=== PATIENT | female | born 1985 | race African-American/Black ===

== ENCOUNTER 2017-09-02 12:28 | Emergency (ER) | payer SELFPAY ==
--- NOTE | 2017-09-02 12:39 | PHYS DOC ---
Adult General Chief Complaint Chief Complaint: CHEST PAIN HPI HPI Patient is a 32 year old -Macanese Mac[place] female who presents with chest pain that is in her right upper quadrant around to her back and into her anterior chest. She states it's there constantly sometimes is made worse when she lays down. She denies any vomiting but states she's felt nauseated. She states she feels short of breath and has no energy at all the symptoms been going on for about the last 3 days. She denies any history of smoking or tobacco use. She denies a family history of heart disease. Review of Systems Review of Systems Constitutional: Denies fever or chills [] Eyes: Denies change in visual acuity, redness, or eye pain [] HENT: Denies nasal congestion or sore throat [] Respiratory: Denies cough or shortness of breath [] Cardiovascular: No additional information not addressed in HPI [] GI: Denies abdominal pain, nausea, vomiting, bloody stools or diarrhea [] : Denies dysuria or hematuria [] Musculoskeletal: Denies back pain or joint pain [] Integument: Denies rash or skin lesions [] Neurologic: Denies headache, focal weakness or sensory changes [] Endocrine: Denies polyuria or polydipsia [] Physical Exam Physical Exam Constitutional: Well developed, well nourished, no acute distress, non-toxic appearance. [] HENT: Normocephalic, atraumatic, bilateral external ears normal, oropharynx moist, no oral exudates, nose normal. [] Eyes: PERRLA, EOMI, conjunctiva normal, no discharge. [] Neck: Normal range of motion, no tenderness, supple, no stridor. [] Cardiovascular:Heart rate regular rhythm, no murmur [] Lungs & Thorax: Bilateral breath sounds clear to auscultation [] Abdomen: Bowel sounds normal, soft, tender palpation in the right upper quadrant and the right flank area, no rebound or guarding, no masses, no pulsatile masses. [] Skin: Warm, dry, no erythema, no rash. [] Back: No tenderness, no CVA tenderness. [] Extremities: No tenderness, no cyanosis, no clubbing, ROM intact, no edema. [] Neurologic: Alert and oriented X 3, normal motor function, normal sensory function, no focal deficits noted. [] Psychologic: Affect normal, judgement normal, mood normal. [] EKG EKG EKG shows sinus rhythm [address] elevations, T-wave inversions noted in lead 3, normal axis, QTC 424 ms, as interpreted by me. Radiology/Procedures Radiology/Procedures [address] [address] IMAGING REPORT Signed PATIENT: WESLEY COLÓN ACCOUNT: [id number] : 1985 LOCATION: ER AGE: 32 SEX: F EXAM STATUS: REG ER ORD. PHYSICIAN: DERICK KAISER MD REASON: chest pain PROCEDURE: PORTABLE CHEST 1V Indication chest pain. A single view of the chest was obtained. No prior imaging of the chest is available. The heart and pulmonary vessels appear normal. The mediastinum has a normal appearance. The lungs are clear. There is no pleural fluid or pneumothorax. The bony structures appear grossly intact. IMPRESSION: No acute finding apparent in the chest DICTATED AND SIGNED BY: JACKIE CASILLAS MD DATE: 09/02/17 1311 CC: DERICK KAISER MD; PCP,NO ~ [address] [address] IMAGING REPORT Signed PATIENT: WESLEY COLÓN ACCOUNT: [id number] : 1985 LOCATION: ER AGE: 32 SEX: F EXAM STATUS: REG ER ORD. PHYSICIAN: DERICK KAISER MD REASON: ruq pain PROCEDURE: ABDOMEN LTD Right upper quadrant ultrasound 09/02/2017 Indication: Right upper quadrant pain Comparison study: None Discussion: Partially visualized pancreas is unremarkable. Visualized portions of the aorta and IVC are unremarkable. Gallbladder is unremarkable in appearance without evidence of thickening, stones, or sludge. Portal vein appears to be grossly patent. Common bile is not dilated at 3 mm. Visualized liver parenchyma is unremarkable. Liver is normal in size measuring 15 cm longitudinally. The right kidney is unremarkable in appearance measuring 10.4 cm in length. Impression: Unremarkable sonographic appearance of the right upper quadrant DICTATED AND SIGNED BY: ARVIN BEE MD DATE: 09/02/17 1412 CC: DERICK KAISER MD; PCP,NO ~ [place] [id number] IMAGING REPORT Signed PATIENT: WESLEY COLÓN ACCOUNT: [id number] : 1985 LOCATION: ER AGE: 32 SEX: F EXAM STATUS: REG ER ORD. PHYSICIAN: DERICK KAISER MD REASON: R/O PE- CHEST PAIN PROCEDURE: CT ANGIOGRAPHY CHEST Indication chest pain. Evaluate for potential pulmonary embolus. Axial images through the chest were obtained. Approximately 75 cc of Omnipaque 300 was administered intravenously. MIP images were generated and reviewed. No prior CT imaging of the chest is available. Imaging through the upper abdomen is unremarkable. The thoracic aorta appears unremarkable. There is no significant hilar or mediastinal adenopathy. Minimal soft tissue prominence in the anterior mediastinum may reflect some residual thymus. The study is negative for pulmonary embolus. No acute parenchymal infiltrate is seen in either lung. There is no dominant soft tissue mass seen in either lung. IMPRESSION: No acute finding in the chest. Negative study for pulmonary embolus . PQRS Compliance Statement: One or more of the following individualized dose reduction techniques were utilized for this examination: 1. Automated exposure control 2. Adjustment of the mA and/or kV according to patient size 3. Use of iterative reconstruction technique DICTATED AND SIGNED BY: JACKIE CASILLAS MD DATE: 09/02/17 1640 CC: DERICK KAISER MD; PCP,NO ~ Impressions: Weakness UTI Noncardiac chest pain Course & Med Decision Making Course & Med Decision Making Pertinent Labs and Imaging studies reviewed. (See chart for details) Patient is EKG, 2 sets troponin, ultrasound of her right upper quadrant in addition to a CT angiogram all negative. Patient does have a slight urinary tract infection and will go ahead and treat that with gentamicin next 3 days. I' m not sure what's causing her chest discomfort but this time I do not believe there is any serious pathology that prevents her from having this worked up as an outpatient. Patient's agreeable plan being discharged in stable condition. Return precautions given. Dragon Disclaimer Dragon Disclaimer This chart was dictated in whole or in part using Voice Recognition software in a busy, high-work load, and often noisy Emergency Department environment. It may contain unintended and wholly unrecognized errors or omissions. Departure Departure: Impression: Primary Impression: Non-cardiac chest pain Additional Impression: UTI (urinary tract infection) Disposition: 01 HOME, SELF-CARE Condition: STABLE Patient Instructions: Urinary Tract Infection Additional Instructions: The CAT scan of your lungs did not show any blood clots. Your cardiac enzymes did not show any damage to her heart and the ultrasound of your gallbladder did not show any abnormalities. You have a bladder infection when he taken a Vicodin next 3 days. You'll need to follow-up with your primary care physician within the week. Return ER if you have severe pain, shortness of breath, or other concerns. Scripts Levofloxacin (LEVAQUIN) 500 Mg Tablet 1 TAB PO DAILY, #3 TAB Prov: DERICK KAISER MD 09/02/17 Problem Qualifiers Additional Impression: UTI (urinary tract infection) Urinary tract infection type: acute cystitis Hematuria presence: without hematuria Qualified Codes: N30.00 - Acute cystitis without hematuria DERICK KAISER MD Sep 02, 2017 12:39
[2017-09-02 13:02] LABS: BASO # 0.1 x10^3/uL (0.0-0.2); BASO % 1 % (0-3); EOS # 0.3 x10^3/uL (0.0-0.7); EOS % 4 % (0-3); HEMATOCRIT 37.3 % (36.0-47.0); HEMOGLOBIN 12.7 g/dL (12.0-15.5); LYMPH # 2.2 x10^3/uL (1.0-4.8); LYMPH % 26 % (24-48); MEAN CORPUSCULAR HEMOGLOBIN 31 pg (25-35); MEAN CORPUSCULAR HGB CONC 34 g/dL (31-37); MEAN CORPUSCULAR VOLUME 90 fL (79-100); MONO # 0.5 x10^3/uL (0.0-1.1); MONO % 7 % (0-9); NEUT # 5.2 x10^3uL (1.8-7.7); NEUT % 63 % (31-73); PLATELET COUNT 268 x10^3/uL (140-400); RED BLOOD COUNT 4.13 x10^6/uL (3.50-5.40); RED CELL DISTRIBUTION WIDTH 13.4 % (11.5-14.5); WHITE BLOOD COUNT 8.3 x10^3/uL (4.0-11.0)
[2017-09-02 13:12] LABS: PREG TEST PT QUAL NEGATIVE (NEG)
--- NOTE | 2017-09-02 13:15 | RAD ---
Indication chest pain. A single view of the chest was obtained. No prior imaging of the chest is available. The heart and pulmonary vessels appear normal. The mediastinum has a normal appearance. The lungs are clear. There is no pleural fluid or pneumothorax. The bony structures appear grossly intact. IMPRESSION: No acute finding apparent in the chest
[2017-09-02 13:31] LABS: ALBUMIN 3.3 g/dL (3.4-5.0); CALCIUM 8.4 mg/dL (8.5-10.1); CREATININE 0.7 mg/dL (0.6-1.0); DIRECT BILIRUBIN 0.2 mg/dL (0.0-0.2); GFR 118.9; MAGNESIUM 1.7 mg/dL (1.8-2.4); POTASSIUM 3.1 mmol/L (3.5-5.1); TOTAL BILIRUBIN 0.8 mg/dL (0.2-1.0); TOTAL PROTEIN 7.4 g/dL (6.4-8.2)
[2017-09-02 13:40] LABS: BARBITURATES NEG (NEG); BENZODIAZEPINES NEG (NEG); CANNABINOIDS NEG (NEG); COCAINE NEG (NEG); METHADONE NEG (NEG); OPIATES NEG (NEG); PHENCYCLIDINE NEG (NEG)
[2017-09-02 13:41] LABS: AMPHETAMINE/METHAMPHETAMINE NEG (NEG)
[2017-09-02 13:45] LABS: BACTERIA,URINE MOD /HPF (0-FEW); BILIRUBIN,URINE NEG (NEG); CLARITY,URINE CLOUDY; COLOR,URINE YELLOW; GLUCOSE,URINE NEG (NEG); NITRITE,URINE NEG (NEG); RBC,URINE 0 /HPF (0-2); UROBILINOGEN,URINE 1 mg/dL (0.2 mg/dL)
[2017-09-02 13:46] LABS: SQUAMOUS EPITHELIAL CELL,UR MOD /LPF
--- NOTE | 2017-09-02 14:16 | RAD ---
Right upper quadrant ultrasound 09/02/2017 Indication: Right upper quadrant pain Comparison study: None Discussion: Partially visualized pancreas is unremarkable. Visualized portions of the aorta and IVC are unremarkable. Gallbladder is unremarkable in appearance without evidence of thickening, stones, or sludge. Portal vein appears to be grossly patent. Common bile is not dilated at 3 mm. Visualized liver parenchyma is unremarkable. Liver is normal in size measuring 15 cm longitudinally. The right kidney is unremarkable in appearance measuring 10.4 cm in length. Impression: Unremarkable sonographic appearance of the right upper quadrant
[2017-09-02] MEDS ORDERED: POTASSIUM CHLORIDE 20 MEQ TABLET.ER. PO ONE ×2 (15:15→16:00)
[2017-09-02] MEDS ORDERED: IV NORMAL SALINE 1,000ML 1,000 ML IV ONE (16:30)
[2017-09-02] MEDS ORDERED: IOHEXOL 300 MG/ML 75 ML VIAL. IV ONE (16:45)
--- NOTE | 2017-09-02 16:53 | RAD ---
Indication chest pain. Evaluate for potential pulmonary embolus. Axial images through the chest were obtained. Approximately 75 cc of Omnipaque 300 was administered intravenously. MIP images were generated and reviewed. No prior CT imaging of the chest is available. Imaging through the upper abdomen is unremarkable. The thoracic aorta appears unremarkable. There is no significant hilar or mediastinal adenopathy. Minimal soft tissue prominence in the anterior mediastinum may reflect some residual thymus. The study is negative for pulmonary embolus. No acute parenchymal infiltrate is seen in either lung. There is no dominant soft tissue mass seen in either lung. IMPRESSION: No acute finding in the chest. Negative study for pulmonary embolus . PQRS Compliance Statement: One or more of the following individualized dose reduction techniques were utilized for this examination: 1. Automated exposure control 2. Adjustment of the mA and/or kV according to patient size 3. Use of iterative reconstruction technique
[2017-09-02] MEDS ORDERED: LEVO500T59 PO (17:19)
[2017-09-02 17:38] VITALS: BP 144/105
--- NOTE | 2017-09-02 19:12 | EKG ---
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
== END 2017-09-02 17:38 | disposition home or self-care (01) ==
LOC: ER 12:28
DX: N30.00 Acute cystitis without hematuria (principal); R07.89 Other chest pain; R53.1 Weakness
CPT/HCPCS: 36415; 71010; 71275; 76705; 80048; 80076; 80307; 81001; 82553; 83690; 83735; 83880; 84443; 84484; 84703; 85025; 85379; 85610; 85730; 87086; 93005; 99285; Q9967; G0479

== ENCOUNTER → 2019-04-19 | Outpatient (CLI) | payer OTHER ==
[~2019-04-19] MED LIST: LEVO500T59 PO
[2019-04-19 09:24] LABS: BASO % 1 % (0-3); EOS # 0.3 x10^3/uL (0.0-0.7); EOS % 4 % (0-3); HEMOGLOBIN 13.4 g/dL (12.0-15.5); LYMPH # 2.4 x10^3/uL (1.0-4.8); LYMPH % 35 % (24-48); MEAN CORPUSCULAR HEMOGLOBIN 30 pg (25-35); MEAN CORPUSCULAR HGB CONC 34 g/dL (31-37); MEAN CORPUSCULAR VOLUME 89 fL (79-100); MONO # 0.5 x10^3/uL (0.0-1.1); MONO % 7 % (0-9); NEUT # 3.5 x10^3uL (1.8-7.7); NEUT % 53 % (31-73); PLATELET COUNT 275 x10^3/uL (140-400); RED BLOOD COUNT 4.48 x10^6/uL (3.50-5.40); RED CELL DISTRIBUTION WIDTH 13.9 % (11.5-14.5); WHITE BLOOD COUNT 6.7 x10^3/uL (4.0-11.0)
[2019-04-19 09:34] LABS: ALBUMIN 3.6 g/dL (3.4-5.0); ALBUMIN/GLOBULIN RATIO 0.9 (1.0-1.7); CALCIUM 8.5 mg/dL (8.5-10.1); CREATININE 0.8 mg/dL (0.6-1.0); GFR 100.6; POTASSIUM 3.1 mmol/L (3.5-5.1); TOTAL BILIRUBIN 1.6 mg/dL (0.2-1.0); TOTAL PROTEIN 7.6 g/dL (6.4-8.2)
[2019-04-19 13:13] LABS: THYROID STIM HORMONE (TSH) 2.014 uIU/mL (0.358-3.740)
== END | disposition home or self-care (01) ==
LOC: PMG 08:37
PROVIDERS: ATTEND Family Medicine
DX: E03.9 Hypothyroidism, unspecified (principal); I10 Essential (primary) hypertension
CPT/HCPCS: 36415; 80053; 80061; 84443; 85025

== ENCOUNTER 2020-01-11 17:00 | Emergency (ER) | payer OTHER ==
[~2020-01-11] VITALS: Ht 160 cm; Wt 83.3 kg
[2020-01-11] MEDS ORDERED: KETOROLAC 15 MG/ML VIAL. IVP ONE (17:45)
[2020-01-11] MEDS ORDERED: ONDANSETRON PF 4 MG/2 ML VIAL. IVP ONE (17:45)
[2020-01-11] MEDS ORDERED: IV NORMAL SALINE 1,000ML 1,000 ML IV ONE (17:45)
[2020-01-11] MEDS ORDERED: FAMOTIDINE 20 MG/2 ML VIAL IVP ONE (17:45)
--- NOTE | 2020-01-11 17:48 | PHYS DOC ---
Past History Past Medical History: Hypothyroid (MIKAELA GIBSON DO) Past Surgical History: (MIKAELA GIBSON DO) Smoking: Non-smoker Alcohol Use: Occasionally Drug Use: None (MIKAELA GIBSON DO) Adult General Chief Complaint Chief Complaint: DIARRHEA HPI HPI Patient is a 34-year-old female who presents to the ED with generalized abdominal pain and loose stools. She stated that the abdominal pain began this morning at roughly 0700 and that diarrhea followed shortly after. She describes the abdominal pain as a achy burning pain that is similar to acid reflux except in her lower GI tract. She has tried Pepto-Bismol without any improvement in her symptoms. Nothing has made the symptoms worse. She rates her abdominal pain as a 5 out of 10. She states that she does have some nausea associated with the pain and loose stools. She describes the loose stools as watery with flakes. She stated that the most recent stool was black in color and said it was watery. She denied any recent antibiotic use, recent travel, or possibility of due to lack of menstruation cycle secondary to Nexplanon implant control. 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 (MIKAELA GIBSON DO) Review of Systems Review of Systems Constitutional: Denies fever, reports chills Respiratory: Denies cough or shortness of breath Cardiovascular: Denies chest pain or palpitations GI: Reports abdominal pain, nausea, and diarrhea; denied vomiting : Denies dysuria or hematuria Musculoskeletal: Denies back pain or joint pain Integument: Denies rash or skin lesions Neurologic: Denies headache, focal weakness or sensory changes Complete systems were reviewed and found to be within normal limits, except as documented in this note. (MIKAELA GIBSON DO) Allergies Allergies Allergies Coded Allergies Type Severity Reaction Last Updated Verified No Known Drug Allergies 09/02/17 No (MIKAELA GIBSON DO) Physical Exam Physical Exam Constitutional: Well developed, well nourished, no acute distress, non-toxic appearance HENT: Normocephalic, atraumatic, oropharynx moist Eyes: EOMI, conjunctiva normal, no discharge Cardiovascular: Heart rate rapid, regular rhythm Lungs & Thorax: Bilateral breath sounds clear to auscultation, no wheezing Abdomen: Soft, generalized tenderness to deep palpation, bowel sounds active, no guarding/rebound tenderness/distention Skin: Warm, dry, no erythema, no rash Extremities: No tenderness, ROM intact, no edema Neurologic: Alert and oriented, normal motor function, normal sensory function, no focal deficits noted Psychologic: Affect normal, judgment normal (MIKAELA GIBSON DO) EKG EKG [] (MIKAELA GIBSON DO) Radiology/Procedures Radiology/Procedures [] (MIKAELA GIBSON DO) Course & Med Decision Making Course & Med Decision Making Pertinent Labs and Imaging studies reviewed. (See chart for details) Patient is a 34-year-old female who presents to the ED with generalized abdominal pain and loose stools. She stated that the abdominal pain began this morning at roughly 0700 and that diarrhea followed shortly after. She describes the abdominal pain as a achy burning pain that is similar to acid reflux except in her lower GI tract. She has tried Pepto-Bismol without any improvement in her symptoms. Nothing has made the symptoms worse. She rates her abdominal pain as a 5 out of 10. She describes her diarrhea as watery with flakes of fecal matter. In the ED patient was assessed for infectious versus inflammatory cause of abdominal pain. Abdomen non-peritoneal. Symptomatic treatment provided. Labs ordered and pending. 1800: Labs still pending, patient was handed off to Dr. Thao for further evaluation and final disposition. Discussed current findings and plan with patient, who acknowledges understanding and agreement. (MIKAELA GIBSON DO) Course & Med Decision Making 2000 hrs. patient feeling much better. Requesting discharge. Potassium supplement. Patient up with potassium foods. Patient push clear fluids. Follow- up with primary care. Return if any concerns. Tylenol and ibuprofen for discomfort. Patient did request a Zofran prescription for nausea. She advised if active diarrhea continues to consider check for C. difficile due to her possible exposure at work. . Patient was unable to produce a stool while in the ED Impression: 1. Acute gastroenteritis 2. Dehydration 3. Hypokalemia 2.9 4. Elevated total bilirubin 1.5 (RODRIGUEZ THAO MD) Dragon Disclaimer Dragon Disclaimer This electronic medical record was generated, in whole or in part, using a voice recognition dictation system. (MIKAELA GIBSON DO) Departure Departure: Impression: Primary Impression: Diarrhea Additional Impression: Abdominal pain Disposition: HOME/RESIDENCE PRIOR TO ADM Condition: STABLE Referrals: CHRISTOPHER QUINTANILLA PAC (PCP) Scripts Ondansetron Hcl (ZOFRAN) 8 Mg Tablet 8 MG PO QIDPRN PRN for active vomiting, #30 BOTTLE Prov: RODRIGUEZ THAO MD 01/11/20 Dustyjorge Disclaimer This chart was dictated in whole or in part using Voice Recognition software in a busy, high-work load, and often noisy Emergency Department environment. It may contain unintended and wholly unrecognized errors or omissions. (RODRIGUEZ THAO MD) Problem Qualifiers Primary Impression: Diarrhea Diarrhea type: unspecified type Qualified Codes: R19.7 - Diarrhea, unspecified Additional Impression: Abdominal pain Abdominal location: unspecified location Qualified Codes: R10.9 - Unspecified abdominal pain MIKAELA GIBSON DO Jan 11, 2020 17:48 RODRIGUEZ THAO MD Jan 11, 2020 20:02
[2020-01-11 18:32] LABS: BASO % 1 % (0-3); EOS # 0.4 x10^3/uL (0.0-0.7); EOS % 5 % (0-3); HEMATOCRIT 41.9 % (36.0-47.0); HEMOGLOBIN 13.4 g/dL (12.0-15.5); LYMPH # 1.4 x10^3/uL (1.0-4.8); LYMPH % 18 % (24-48); MEAN CORPUSCULAR HEMOGLOBIN 29 pg (25-35); MEAN CORPUSCULAR HGB CONC 32 g/dL (31-37); MEAN CORPUSCULAR VOLUME 92 fL (79-100); MONO # 0.5 x10^3/uL (0.0-1.1); MONO % 7 % (0-9); NEUT # 5.5 x10^3uL (1.8-7.7); NEUT % 70 % (31-73); PLATELET COUNT 264 x10^3/uL (140-400); RED BLOOD COUNT 4.57 x10^6/uL (3.50-5.40); RED CELL DISTRIBUTION WIDTH 13.8 % (11.5-14.5); WHITE BLOOD COUNT 7.8 x10^3/uL (4.0-11.0)
[2020-01-11 18:38] LABS: U PREG PATIENT NEGATIVE (NEG)
[2020-01-11 18:44] LABS: BACTERIA,URINE FEW /HPF (0-FEW); BILIRUBIN,URINE NEG (NEG); CLARITY,URINE CLOUDY; COLOR,URINE YELLOW; GLUCOSE,URINE NEG (NEG); NITRITE,URINE NEG (NEG); RBC,URINE 0 /HPF (0-2); SQUAMOUS EPITHELIAL CELL,UR FEW /LPF; WBC,URINE RARE /HPF (0-4)
[2020-01-11 18:51] LABS: ALBUMIN 3.6 g/dL (3.4-5.0); ALBUMIN/GLOBULIN RATIO 0.9 (1.0-1.7); CALCIUM 7.5 mg/dL (8.5-10.1); CREATININE 0.7 mg/dL (0.6-1.0); GFR 117.3; MAGNESIUM 1.8 mg/dL (1.8-2.4); TOTAL BILIRUBIN 1.5 mg/dL (0.2-1.0); TOTAL PROTEIN 7.6 g/dL (6.4-8.2)
[2020-01-11 18:54] LABS: POTASSIUM 2.9 mmol/L (3.5-5.1)
[2020-01-11] MEDS ORDERED: POTASSIUM CHLORIDE 20 MEQ TABLET.ER. PO ONE (19:15)
[2020-01-11 19:42] VITALS: BP 142/90
[2020-01-11] MEDS ORDERED: ONDA8TAB9 PO (20:06)
== END 2020-01-11 20:46 | disposition home or self-care (01) ==
LOC: ER 17:00
DX: K52.9 Noninfective gastroenteritis and colitis, unspecified (principal); E86.0 Dehydration; E87.6 Hypokalemia; R74.8 Abnormal levels of other serum enzymes; E03.9 Hypothyroidism, unspecified
CPT/HCPCS: 36415; 80053; 81001; 81025; 83690; 83735; 85025; 86705; 86709; 86803; 87340; 96361; 96374; 96375; 99284; J1885; J2405; J3490; J7030

== ENCOUNTER 2020-07-05 15:46 | Emergency (ER) | payer OTHER ==
[~2020-07-05] VITALS: Ht 160 cm; Wt 85.0 kg
[~2020-07-05 15:46] MED LIST changes: +ONDA8TAB9 PO
--- NOTE | 2020-07-05 16:20 | RAD ---
EXAM: AP View of the chest DATE: 07/05/2020 3:57 PM INDICATION: palpitations COMPARISON: 09/02/2017 FINDINGS: The heart is not enlarged. Mediastinal and hilar contours are normal. No focal parenchymal airspace opacity. No pleural effusion or pneumothorax. Mild eventration right hemidiaphragm. IMPRESSION: 1. No radiographic evidence for acute cardiopulmonary process. Electronically signed by: Harjinder Villarreal MD (07/05/2020 4:17 PM) LEATHA
--- NOTE | 2020-07-05 16:34 | EKG ---
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
[2020-07-05] MEDS: amLODIPine BESYLATE 5 MG TABLET PO ONE (16:51)
[2020-07-05 16:56] LABS: BASO % 1 % (0-3); EOS # 0.2 x10^3/uL (0.0-0.7); EOS % 2 % (0-3); HEMATOCRIT 37.3 % (36.0-47.0); HEMOGLOBIN 12.5 g/dL (12.0-15.5); LYMPH # 2.5 x10^3/uL (1.0-4.8); LYMPH % 35 % (24-48); MEAN CORPUSCULAR HEMOGLOBIN 31 pg (25-35); MEAN CORPUSCULAR HGB CONC 33 g/dL (31-37); MEAN CORPUSCULAR VOLUME 91 fL (79-100); MONO # 0.6 x10^3/uL (0.0-1.1); MONO % 8 % (0-9); NEUT # 3.9 x10^3uL (1.8-7.7); NEUT % 54 % (31-73); PLATELET COUNT 247 x10^3/uL (140-400); RED BLOOD COUNT 4.08 x10^6/uL (3.50-5.40); WHITE BLOOD COUNT 7.2 x10^3/uL (4.0-11.0)
[2020-07-05 17:08] LABS: ALBUMIN 3.2 g/dL (3.4-5.0); ALBUMIN/GLOBULIN RATIO 0.8 (1.0-1.7); CALCIUM 7.8 mg/dL (8.5-10.1); CREATININE 0.9 mg/dL (0.6-1.0); GFR 87.3; TOTAL BILIRUBIN 0.8 mg/dL (0.2-1.0); TOTAL PROTEIN 7.2 g/dL (6.4-8.2)
--- NOTE | 2020-07-05 17:17 | PHYS DOC ---
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 Had a blood pressure checked and it was 160/120 at the office. Symptoms started around 10 AM this morning. States she is supposed to be taking 5 mg of Norvasc daily but she stopped this in January because she ran out of the prescription. Father with a history of CVA. Denies any cocaine abuse. No family history of aortic disease, arrhythmias, connective tissue disorder or clotting disorders. Patient does not smoke tobacco. 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 ROS: Denies associated fever, chills, headache, neck stiffness, cough, sore throat, chest pressure heaviness or tightness, dyspnea, orthopnea, hemoptysis, nausea, vomiting, diarrhea, leg swelling, rash, neurologic deficits. (SWEETIE MOORE DO) Heart Score: HEART Score for Chest Pain: HEART Score for Chest Pain Response (Comments) Value History Slighlty/Non-Suspicious 0 ECG Normal 0 Age < 45 0 Risk Factors >3 Risk Factors or Hx CAD 2 Troponin < Normal Limit 0 Total 2 Risk Factors: Risk Factors: DM, Current or recent (<one month) smoker, HTN, HLP, family history of CAD, obesity. Risk Scores: Score 0 - 3: 2.5% MACE over next 6 weeks - Discharge Home Score 4 - 6: 20.3% MACE over next 6 weeks - Admit for Clinical Observation Score 7 - 10: 72.7% MACE over next 6 weeks - Early Invasive Strategies (SWEETIE MOORE DO) Current Medications: Current Meds: Current Medications Medications (Trade) Dose Ordered Sig/Isaac Start Time Stop Time Status Last Admin Dose Admin Amlodipine Besylate (Norvasc) 5 mg 1X ONCE 07/05/20 16:45 07/05/20 16:46 DC 07/05/20 16:51 5 MG (SWEETIE MOORE DO) Allergies: Allergies: Allergies Coded Allergies Type Severity Reaction Last Updated Verified No Known Drug Allergies 01/11/20 No (SWEETIE MOORE DO) Physical Exam: PE: Constitutional: Well developed, well nourished, no acute distress, non-toxic appearance. [] HENT: Normocephalic, atraumatic, bilateral external ears normal, oropharynx moist, no oral exudates, nose normal. [] Eyes: EOMI, conjunctiva normal, no discharge. [] Neck: Normal range of motion, no tenderness, supple, no stridor. [] Cardiovascular:Heart rate regular rhythm, no murmur [] Lungs & Thorax: Bilateral breath sounds clear to auscultation [] Abdomen: Bowel sounds normal, soft, no tenderness, no masses, no pulsatile masses. [] Skin: Warm, dry, no erythema, no rash. [] Back: No tenderness, no CVA tenderness. [] Extremities: No tenderness, no cyanosis, no clubbing, ROM intact, no edema. [] Neurologic: Alert and oriented X 3, normal motor function, normal sensory function, no focal deficits noted. [] Psychologic: Affect normal, judgement normal, mood normal. [] (SWEETIE MOORE DO) Current Patient Data: Labs: Laboratory Tests Test 07/05/20 16:32 White Blood Count 7.2 x10^3/uL (4.0-11.0) Red Blood Count 4.08 x10^6/uL (3.50-5.40) Hemoglobin 12.5 g/dL (12.0-15.5) Hematocrit 37.3 % (36.0-47.0) Mean Corpuscular Volume 91 fL (79-100) Mean Corpuscular Hemoglobin 31 pg (25-35) Mean Corpuscular Hemoglobin Concent 33 g/dL (31-37) Red Cell Distribution Width 14.0 % (11.5-14.5) Platelet Count 247 x10^3/uL (140-400) Neutrophils (%) (Auto) 54 % (31-73) Lymphocytes (%) (Auto) 35 % (24-48) Monocytes (%) (Auto) 8 % (0-9) Eosinophils (%) (Auto) 2 % (0-3) Basophils (%) (Auto) 1 % (0-3) Neutrophils # (Auto) 3.9 x10^3uL (1.8-7.7) Lymphocytes # (Auto) 2.5 x10^3/uL (1.0-4.8) Monocytes # (Auto) 0.6 x10^3/uL (0.0-1.1) Eosinophils # (Auto) 0.2 x10^3/uL (0.0-0.7) Basophils # (Auto) 0.0 x10^3/uL (0.0-0.2) Sodium Level 141 mmol/L (136-145) Potassium Level 3.0 mmol/L (3.5-5.1) L Chloride Level 106 mmol/L (98-107) Carbon Dioxide Level 30 mmol/L (21-32) Anion Gap 5 (6-14) L Blood Urea Nitrogen 10 mg/dL (7-20) Creatinine 0.9 mg/dL (0.6-1.0) Estimated GFR (Cockcroft-Gault) 87.3 BUN/Creatinine Ratio 11 (6-20) Glucose Level 97 mg/dL (70-99) Calcium Level 7.8 mg/dL (8.5-10.1) L Total Bilirubin 0.8 mg/dL (0.2-1.0) Aspartate Amino Transferase (AST) 16 U/L (15-37) Alanine Aminotransferase (ALT) 22 U/L (14-59) Alkaline Phosphatase 95 U/L (46-116) Total Protein 7.2 g/dL (6.4-8.2) Albumin 3.2 g/dL (3.4-5.0) L Albumin/Globulin Ratio 0.8 (1.0-1.7) L Vital Signs: Vital Signs Date Time Temp Pulse Resp B/P (MAP) Pulse Ox O2 Delivery O2 Flow Rate FiO2 07/05/20 16:51 73 169/107 07/05/20 15:50 97.9 18 100 Room Air ([facility]) EKG: EKG: Sinus rhythm at 65 bpm, no axis deviation, normal intervals, no T wave inversions, no ST elevations or ST depressions (SWEETIE MOORE DO) Radiology/Procedures: Radiology/Procedures: IMAGING REPORT Signed PATIENT: WESLEY COLÓN CACCOUNT: [id number] : 1985 LOCATION: ER AGE: 35 SEX: F EXAM STATUS: REG ER ORD. PHYSICIAN: SWEETIE MOORE DO REASON: palpitations PROCEDURE: CHEST AP ONLY EXAM: AP View of the chest DATE: 07/05/2020 3:57 PM INDICATION: palpitations COMPARISON: 09/02/2017 FINDINGS: The heart is not enlarged. Mediastinal and hilar contours are normal. No focal parenchymal airspace opacity. No pleural effusion or pneumothorax. Mild eventration right hemidiaphragm. IMPRESSION: 1. No radiographic evidence for acute cardiopulmonary process. Electronically signed by: Harjinder Villalba MD (07/05/2020 4:17 PM) [facility] DICTATED AND SIGNED BY: HARJINDER VILLALBA MD DATE: 07/05/20 7205 CC: CHRISTOPHER QUINTANILLA PAC; SWEETIE MOORE DO ~ (SWEETIE MOORE DO) Course & Med Decision Making: Course & Med Decision Making Pertinent Labs and Imaging studies reviewed. (See chart for details) Concern for uncontrolled, asymptomatic, hypertension with mild hypokalemia (3), normal renal function, pending d-dimer. EKG and cxr unremarkable. Pt well appearing and in no distress. Due to shift change pt was signed out to oncoming physician, Dr. Silva. (SWEETIE MOORE DO) Course & Med Decision Making Comprehensive signout obtained from off going physician Agree with reported HPI and physical exam findings, also agree with prior physicians work-up to this point Reviewed ED course in its entirety. Saw patient independently, repeated certain aspects of history and physical exam. Patient asymptomatic at present Reviewed heart score of 2. Reviewed pertinent laboratory and imaging findings. Discussed there is no indication for further diagnostic testing at this time Discussed most likely cause of patient's presenting symptoms include uncontrolled symptomatic hypertension, this was addressed by Norvasc being administered today and PCP is already written prescription for pickup tomorrow morning Patient has good outpatient follow-up with PCP and family support Joint decision made to discharge home given that patient continues to be asymptomatic at present Discussed today's presenting symptoms could be an acute presentation of potentially more serious pathology. As such, strict return precautions were discussed with good understanding Ultimately, patient discharged home in stable condition with new prescription written by outpatient PCP for [facility] for blood pressure Patient to follow-up in upcoming 24 to 48 hours for outpatient follow-up and further diagnostic work-up (RIDDHI SILVA DO) Cathy Disclaimer: Dragon Disclaimer: This electronic medical record was generated, in whole or in part, using a voice recognition dictation system. (SWEETIE MOORE DO) Departure Departure: Impression: Primary Impression: Hypertension Additional Impression: Palpitations Disposition: 01 HOME/RESIDENCE PRIOR TO ADM Condition: STABLE Referrals: CHRISTOPHER QUINTANILLA (PCP) Patient Instructions: Amlodipine tablets, Hypertension Justification of Admission: Justification of Admission: Justification of Admission Dx: N/A (RIDDHI SILVA DO) SWEETIE MOORE DO Jul 05, 2020 17:17 RIDDHI SILVA DO Jul 05, 2020 18:17
[2020-07-05 17:30] VITALS: BP 151/100
[2020-07-05 18:02] LABS: U PREG PATIENT NEGATIVE (NEG)
[2020-07-05 18:03] LABS: BARBITURATES NEG (NEG); BENZODIAZEPINES NEG (NEG); CANNABINOIDS NEG (NEG); COCAINE NEG (NEG); METHADONE NEG (NEG); OPIATES NEG (NEG); PHENCYCLIDINE NEG (NEG)
[2020-07-05 18:04] LABS: AMPHETAMINE/METHAMPHETAMINE NEG (NEG)
[2020-07-05] MEDS: POTASSIUM CHLORIDE 20 MEQ TABLET.ER. PO ONE (18:16)
== END 2020-07-05 18:21 | disposition home or self-care (01) ==
LOC: ER 15:46
DX: I10 Essential (primary) hypertension (principal); R00.2 Palpitations
CPT/HCPCS: 36415; 71045; 80053; 80307; 81025; 84484; 85025; 85379; 93005; 99285-25

== ENCOUNTER 2021-12-16 18:11 | Emergency (ER) | payer OTHER ==
[~2021-12-16] VITALS: Ht 160 cm; Wt 85.0 kg
[2021-12-16 18:28] VITALS: BP 149/93
--- NOTE | 2021-12-16 19:16 | PHYS DOC ---
Past History Past Medical History: Hypertension Past Surgical History: Smoking: Non-smoker Alcohol Use: Occasionally Drug Use: None General Adult EDM: Chief Complaint: CONGESTION HPI: HPI: Patient is a 36-year-old female that presents today with nasal congestion, ear pain, and sore throat. She states her symptoms have been going on for 7 to 10 days, she states that today she went to her [employer] appointment they sent her away stating that she needed a Covid test, which for which she got but she does not have the results. But she presents to the emergency department for pain in her ears and throat and nasal congestion and she is wanting something for that. Patient states that she also is not taking her blood pressure medications just because she states that the medication makes her nosebleed. She also states that she has been having muscle pain and that the Tylenol is not helping with her pain. Patient states that her due date is March 162021 that makes her 27 weeks 1 day . Patient denies abdominal pain, vaginal bleeding vaginal discharge, or painful urination. Review of Systems: Review of Systems: Constitutional: Denies fever or chills Eyes: Denies change in visual acuity HENT: nasal congestion or sore throat. ear pain Respiratory: Denies cough or shortness of breath Cardiovascular: Denies chest pain or edema GI: Denies abdominal pain, nausea, vomiting, bloody stools or diarrhea : Denies dysuria Musculoskeletal: Denies back pain or joint pain Integument: Denies rash Neurologic: Denies headache, focal weakness or sensory changes Endocrine: Denies polyuria or polydipsia Lymphatic: Denies swollen glands Psychiatric: Denies depression or anxiety Allergies: Allergies: Allergies Coded Allergies Type Severity Reaction Last Updated Verified No Known Drug Allergies 01/11/20 No Physical Exam: PE: Constitutional: Well developed, well nourished, no acute distress, non-toxic appearance. [] HENT: Normocephalic, atraumatic, right tympanic membrane is bulging but no erythema noted left tympanic membrane is bulging with erythema noted, oropharynx is reddened but no exudate noted, lymph nodes are enlarged in the throat, the patient is able to control her own secretions Eyes: PERRLA, EOMI, conjunctiva normal, no discharge. [] Neck: Normal range of motion, no tenderness, supple, no stridor. [] Cardiovascular:Heart rate regular rhythm, no murmur [] Lungs & Thorax: Bilateral breath sounds clear to auscultation [] Abdomen: Bowel sounds normal, soft, no tenderness, no masses, no pulsatile masses. [] Skin: Warm, dry, no erythema, no rash. [] Back: No tenderness, no CVA tenderness. [] Extremities: No tenderness, no cyanosis, no clubbing, ROM intact, no edema. [] Neurologic: Alert and oriented X 3, normal motor function, normal sensory function, no focal deficits noted. [] Psychologic: Affect normal, judgement normal, mood normal. [] Current Patient Data: Vital Signs: Vital Signs Date Time Temp Pulse Resp B/P (MAP) Pulse Ox O2 Delivery O2 Flow Rate FiO2 12/16/21 18:28 98.2 93 16 149/93 (111) 100 Room Air 12/16/21 18:28 98.2 93 149/93 (111) 100 Vital Signs Date Time Temp Pulse Resp B/P (MAP) Pulse Ox O2 Delivery O2 Flow Rate FiO2 12/16/21 18:28 98.2 93 16 149/93 (111) 100 Room Air EKG: EKG: [] Radiology/Procedures: Radiology/Procedures: [] Heart Score: C/O Chest Pain: N/A Risk Factors: Risk Factors: DM, Current or recent (<one month) smoker, HTN, HLP, family history of CAD, obesity. Risk Scores: Score 0 - 3: 2.5% MACE over next 6 weeks - Discharge Home Score 4 - 6: 20.3% MACE over next 6 weeks - Admit for Clinical Observation Score 7 - 10: 72.7% MACE over next 6 weeks - Early Invasive Strategies Course & Med Decision Making: Course & Med Decision Making Pertinent Labs and Imaging studies reviewed. (See chart for details) 1909 call placed to patient's OB Dr. Cordova [phone]. [address] Elizabeth from the OB office called back I did review the patient's situation with her she is agreeable with having the patient take [id number] Tylenol and Benadryl, also giving amoxicillin and nasal spray for congestion. In regards to her blood pressure management she will need to call Dr. Cordova's office tomorrow and speak to the nurse regarding her medication regime. Did review this information with the patient she is agreeable to the plan of care. Cathy Disclaimer: Cathy Disclaimer: This electronic medical record was generated, in whole or in part, using a voice recognition dictation system. Departure Departure: Impression: Primary Impression: Otitis media Qualified Codes: H65.02 - Acute serous otitis media, left ear Additional Impression: Suspected 2019 novel coronavirus infection Disposition: HOME / SELF CARE / HOMELESS Condition: STABLE Referrals: CHRISTOPHER QUINTANILLA PAC (PCP) PATRICIA CORDOVA MD Patient Instructions: Otitis Media, Adult Additional Instructions: Amoxicillin take 1 g every 8 hours for the next 5 days [id number] Tylenol as needed for faint pain and body aches You may take [id number] Benadryl as labeled directed for an antihistamine which may help with nasal congestion but use with caution may cause drowsiness Azelastine Nasal spray instill two spray into each nare twice daily Call Dr. Cordova's office your [employer] [employer] [facility] in the morning to discuss your blood pressure management with the nurse. You have been tested for or diagnosed with COVID-19. It is an infection caused by a new type of coronavirus. COVID-19 will cause cold-like or mild flu symptoms in most. It can cause more severe symptoms like problems breathing in some. There is no treatment for COVID-19. The body will clear the infection over time. Self-care will help to ease discomfort. Steps to Take: Self-Care Rest as needed. Healthy habits may help you feel better. Steps include: Choose healthy foods including fruits and vegetables. Drink water throughout the day. Get plenty of sleep each night. If you smoke, try to quit. It may ease breathing. Avoid alcohol. Keep Others Healthy The virus can spread to others. Droplets are released every time you sneeze or cough. The droplets can get into the mouth, nose, or eyes of people near you and lead to infection. To lower the chances of spreading COVID-19 to others: Stay at home until your doctor has said it is safe to leave. If you tested positive this will mean staying isolated until both of the following are true: At least 10 days have passed since the start of illness. You are free of fever for at least 72 hours without the use of medicine. During this time: - Avoid public areas, events, or transportation. Do not return to work or school until your doctor has said it is safe to do so. - Call ahead if you need to go to a medical center. Let them know you may have COVID-19. It will help them guide you where to go. They may also ask you to wear a facemask when you come to the office. - If you call for emergency medical services, let them know you may have COVID- 19. While at home: - Try to avoid close contact with others. Stay about 6 feet away. - If possible, spend most of your time in a separate room from others. - Use a face mask if you will be in close contact with others such as sharing a room or vehicle. - Have someone wipe down common surfaces in the home. Use household manager branch every day on areas like doorknobs, counters, or sinks. - Cough or sneeze into a tissue. Throw the tissue away right after use. If a tissue is not available, cough or sneeze into your elbow. - Wash your hands often. Wash them after sneezing or coughing. Use soap and water and wash for at least 20 seconds. Alcohol based hand spot cleaner can be used if soap and water is not available. - Do not prepare food for others. Avoid sharing personal items like forks, spoons, or toothbrushes. - Avoid close contact with pets while you are sick. There is no evidence of the virus passing to pets. This is a safety step until more is known about this virus. Isolation can be frustrating. Social interaction can help. Keep in touch with friends and family through phone and tech options. You can still interact with others in your home, just keep a safe distance of about 6 feet. Follow-up: Your doctors office will check in with you to see if there are any changes in your health. You may be asked to keep track of symptoms to share with them. They will also let you know when you are clear to be in public again. Problems to Look Out For: Contact your doctor if your recovery is not going as you expect. Get emergency care if you have problems such as: - Trouble breathing - Nonstop chest pain or pressure - Changes in awareness, confusion, or problems waking - Lips or face have bluish color - Worsening of symptoms If you think you have an emergency, call for emergency medical services right away. As taken from [facility] Azelastine Hcl (AZELASTINE HCL) 137 Mcg/0.137 Ml [place].pump 2 SPR NS BID for nasal congestion for 30 Days, #30 ML 0 Refills Prov: KEITH MARINO CHIEF INVESTMENT OFFICER 12/16/21 Amoxicillin (AMOXICILLIN) 500 Mg Capsule 2 CAP PO BID for otitis media, #40 CAP Prov: KEITH MARINO CHIEF INVESTMENT OFFICER 12/16/21 KEITH MARINO CHIEF INVESTMENT OFFICER Dec 16, 2021 19:16
[2021-12-16] MEDS ORDERED: AMOX500C PO (20:30)
[2021-12-16] MEDS ORDERED: AZEL137S3 NS (20:30)
== END 2021-12-16 20:30 | disposition home or self-care (01) ==
LOC: ER 18:11
DX: O26.892 Other specified pregnancy related conditions, second trimester (principal); H65.02 Acute serous otitis media, left ear; I10 Essential (primary) hypertension; Z20.822 Contact with and (suspected) exposure to COVID-19; Z3A.27 27 weeks gestation of pregnancy
CPT/HCPCS: 99283